=== PATIENT | male | born 1965 | race Caucasian/White ===

== ENCOUNTER 2020-01-07 07:55 | Day surgery (SDC) | payer OTHER ==
[~2020-01-07] VITALS: Ht 177.8 cm; Wt 106.6 kg
[~2020-01-07 07:55] MED LIST: ACAI500 MG PO; CENTRUM SILVER1 EAC3 PO; CLARITIN10 M2 PO; FLAX OIL1000 MG PO; ROYAL JELLY200 MG PO; SELENIUM50 MCG PO; ZINC50 M1 PO
[2020-01-07] MEDS ORDERED: VITAMIN D-40010 MCG PO (08:07)
[2020-01-07] MEDS ORDERED: CO Q-1010 MG PO (08:07)
--- NOTE | 2020-01-07 09:15 | NUR ---
01/07/20 0915 Avis Fontana 0904- PT ARRIVES TO PACU EASILY AROUSABLE TO VERBAL STIMULI. RESP EVEN AND UNLABORED. OXYGEN SAT MID TO HIGH 90'S ON 3L VIA NC. PT REPORTS NO PAIN OR NAUSEA. 0908- PT FALLS ASLEEP WHEN NOT BEING TALKED TO. PT IS SNORING AND OXYGEN SAT DROPPING TO THE HIGH 80'S ON 3L NC. PT IS AROUSABLE AND ENCOURAGED TO TAKE DEEP BREATHS. PT IS ABLE TO DO THIS AND OXYGEN SAT INCREASED TO HIGH 90'S ON THE 3L VIA NC. 0912- DR. COOK AT THE BEDSIDE TO TALK WITH THE PT.
--- NOTE | 2020-01-08 08:25 | OR ---
[facility] [address] [place], [place] [address] Signed DATE OF OPERATION: 01/07/2020 SURGEON: Ran Cook MD PREOPERATIVE DIAGNOSES: 1. Personal history of colonic polyps, age 49. 2. Father with colon cancer age 55. 3. Brother with colon polyps in his 50s. 4. Moderate internal and external hemorrhoids. POSTOPERATIVE DIAGNOSES: 1. 4-5 mm polyps at cecum (x2), distal right colon, proximal transverse colon, distal transverse colon, 70 cm and 25 cm (x3). 2. Moderate internal and external hemorrhoids. PROCEDURE: Colonoscopy with hot biopsy. ESTIMATED BLOOD LOSS: None. INDICATIONS: Mindy is a 54-year-old gentleman, who returns now for followup colonoscopy. He and his brother both have had colonic polyps removed. In addition, his father had colon cancer at age 55. Mindy is also known to have internal and external hemorrhoids. In the office, I reviewed all this with Mindy in detail. He tells me he really has no lower GI complaints currently. I gave him a pamphlet on colonoscopy and he understands the nature of that test quite well. He understands there is risk including, but not limited to gas bloating, crampy abdominal pain, bleeding, perforation requiring surgery, and missed diagnosis. He had expressed understanding and wished to proceed. He has done well with Versed and fentanyl in the past. DESCRIPTION OF PROCEDURE: Mindy was taken into our endoscopy suite and placed in the left lateral decubitus position. He was given IV sedation with 10 mg Versed and 200 mcg of fentanyl. He told us he likes a couple of beers or a glass of wine each night after work. A digital rectal exam was performed and this did reveal a couple of moderate external hemorrhoids. He has good sphincter tone. Prostate mildly indurated. The adult colonoscope was introduced and advanced all around into the cecum under direct visualization of camera. It took a little extra sedation in order to get into the cecum itself. His prep was Electronically Signed By: RAN COOK MD 01/08/20 0825 PATIENT NAME: MINDY FAN OPERATIVE REPORT DATE OF : 63 REPORT #: [id number] PHYSICIAN: RAN COOK MD PCP: DIXIE YUEN MD REPORT IS CONFIDENTIAL AND NOT TO BE RELEASED WITHOUT AUTHORIZATION [facility] [address] [place] [id number] Signed quite excellent. We could easily see the appendiceal orifice and the opening to the terminal ileum. The scope was then slowly withdrawn. The above-mentioned polyps were easily removed with the help of hot biopsy forceps. There was no diverticulosis. Once in the rectum, the scope had been retroflexed. He does have moderate internal hemorrhoid columns. After this, the gas was suctioned out. The colonoscope removed. Mindy tolerated the procedure quite well. RECOMMENDATIONS: I will see Mindy back in my office in 7 to 14 days to review his results. He will stay on the 5-year rotation given his personal family history. Ran Coko MD ALB/MODL /[id number] cc: MD Dixie Lopez MD Copies: RAN COOK MD ~ Electronically Signed By: RAN COOK MD 01/08/20 0825 PATIENT NAME: MINDY FAN OPERATIVE REPORT DATE OF : 63 REPORT #: [id number] PHYSICIAN: RAN COOK MD PCP: DIXIE YUEN MD REPORT IS CONFIDENTIAL AND NOT TO BE RELEASED WITHOUT AUTHORIZATION
--- NOTE | 2020-01-08 16:52 | PATH ---
[facility] [address] [place] [address] Signed SPECIMEN(S): A COLON POLYP AT 25 CM SPECIMEN(S): B COLON POLYP AT 70 CM SPECIMEN(S): C DISTAL TRANSVERSE POLYP SPECIMEN(S): D DISTAL ASCENDING POLYP SPECIMEN(S): E CECAL POLYP SPECIMEN(S): F PROXIMAL TRANSVERSE POLYP SPECIMEN SOURCE: A. COLON POLYP AT 25 CM B. COLON POLYP AT 70 CM C. DISTAL TRANSVERSE POLYP D. DISTAL ASCENDING POLYP E. CECAL POLYP F. PROXIMAL TRANSVERSE POLYP CLINICAL HISTORY: Colonoscopy. Family history of colon CA, personal history of colon polyps. Post: External/internal hemorrhoids, colon polyps. MICROSCOPIC DESCRIPTION: Histologic sections of all submitted blocks are examined by light microscopy. These findings, together with the gross examination, support the pathologic diagnosis. FINAL PATHOLOGIC DIAGNOSIS: A. Colon, 25 cm, polypectomy: - Hyperplastic polyp. B. Colon, 70 cm, polypectomy: - Tubular adenoma. C. Colon, distal transverse, polypectomy: - Scant superficial fragments of benign colonic mucosa with no significant pathologic changes. D. Colon, distal ascending, polypectomy: - Tubular adenoma. E. Cecum, polypectomy: - Tubular adenoma. F. Colon, proximal transverse, polypectomy: - Tubular adenoma. BRP:[facility]:C2NR GROSS DESCRIPTION: Six specimens are received in six containers, labeled "DO" PATIENT NAME: MINDY FAN PATHOLOGY DATE OF : 63 REPORT #: [id number] PHYSICIAN: ANN MANNING PCP: JUN YUEN MD REPORT IS CONFIDENTIAL AND NOT TO BE RELEASED WITHOUT AUTHORIZATION [facility] [address] [place], [place] [address] Signed A. The specimen, labeled "DO, 1," and designated on the requisition "colon polyp at 25 cm," is received in formalin and consists of three lynn soft tissue polypoid fragments that measure 0.3 cm in greatest dimension. The specimen is entirely submitted in cassette (A1). B. The specimen, labeled "DO, 2," and designated on the requisition "colon polyp at 70 cm," is received in formalin and consists of one lynn soft tissue fragment that measures 0.3 cm in greatest dimension. The specimen is entirely submitted in cassette (B1). C. The specimen, labeled "DO, 3," and designated on the requisition "distal transverse polyp," is received in formalin and consists of one minute lynn soft tissue fragment that measures 0.2 cm in greatest dimension. The specimen is filtered, inked with eosin, and entirely submitted in cassette (C1). D. The specimen, labeled "DO, 4," and designated on the requisition "distal ascending polyp," is received in formalin and consists of three lynn soft tissue fragments that measure 0.3 cm in greatest dimension. The specimen is entirely submitted in cassette (D1). E. The specimen, labeled "DO, 5," and designated on the requisition "cecum polyp," is received in formalin and consists of three lynn soft tissue polypoid fragments that measure 0.4 cm in greatest dimension. The specimen is friable and entirely submitted in cassette (E1). F. The specimen, labeled "DO, 6," and designated on the requisition "proximal transverse polyp," is received in formalin and consists of two lynn soft tissue polypoid fragments that measure 0.3 cm in greatest dimension. The specimen is entirely submitted in cassette (F1). AT (under the direct supervision of a pathologist) The Gross Description was prepared using a voice recognition system. The report was reviewed for accuracy; however, sound-alike word errors, addition and/or deletions may occur. If there is any question about this report, please contact Client Services. PERFORMING LABORATORY: The technical component was performed by [employer], [address] [place] [id number] (Heel Packer: Meka Lucero MD; CLIA# [id number]). Professional interpretation was performed by [employer], [facility], [address] [address] (CLIA# [id number]). Diagnostician: Olivier Vaughan MD Pathologist PATIENT NAME: MINDY FAN PATHOLOGY DATE OF : 63 REPORT #: [id number] PHYSICIAN: ANN MANNING PCP: JUN YUEN MD REPORT IS CONFIDENTIAL AND NOT TO BE RELEASED WITHOUT AUTHORIZATION [facility] [address] [place] [id number] Signed Electronically Signed 01/08/2020 Copies: ~ PATIENT NAME: MINDY FAN PATHOLOGY DATE OF : 63 REPORT #: [id number] PHYSICIAN: ANN PATHOLOGY PCP: JUN YUEN MD REPORT IS CONFIDENTIAL AND NOT TO BE RELEASED WITHOUT AUTHORIZATION
== END 2020-01-07 09:50 | disposition home or self-care (01) ==
LOC: DS 07:55 → OPS 07:55 → DS 08:04 → OPS 09:00 → DS 09:45 → OPS 09:50
PROVIDERS: ATTEND Colon & Rectal Surgery
PROC: 0DBE8ZZ Excision of Large Intestine, Via Natural or Artificial Opening Endoscopic (ICD-10-PCS; 2020-01-07)
PROC: 0DBL8ZZ Excision of Transverse Colon, Via Natural or Artificial Opening Endoscopic (ICD-10-PCS; 2020-01-07)
PROC: 0DBH8ZZ Excision of Cecum, Via Natural or Artificial Opening Endoscopic (ICD-10-PCS; 2020-01-07)
PROC: 0DBK8ZZ Excision of Ascending Colon, Via Natural or Artificial Opening Endoscopic (ICD-10-PCS; principal; 2020-01-07 09:00)
DX: Z12.11 Encounter for screening for malignant neoplasm of colon (principal); D12.2 Benign neoplasm of ascending colon; D12.0 Benign neoplasm of cecum; D12.3 Benign neoplasm of transverse colon; K64.4 Residual hemorrhoidal skin tags; K64.8 Other hemorrhoids; E78.5 Hyperlipidemia, unspecified; Z83.71 Family history of colonic polyps; Z80.0 Family history of malignant neoplasm of digestive organs; Z86.010 Personal history of colon polyps; Z79.899 Other long term (current) drug therapy; Z88.0 Allergy status to penicillin; Z91.030 Bee allergy status
CPT/HCPCS: 99153; G0500; J2250; J3010

== ENCOUNTER 2021-04-11 16:43 | Emergency (ER) | payer OTHER ==
[~2021-04-11] VITALS: Ht 177.8 cm; Wt 99.8 kg
[~2021-04-11 16:43] MED LIST changes: +CO Q-1010 MG PO; +VITAMIN D-40010 MCG PO
[2021-04-11] MEDS ORDERED: MOBIC15 MG PO (21:20)
== END 2021-04-11 21:49 | disposition home or self-care (01) ==
LOC: ED 16:43
DX: S83.92XA Sprain of unspecified site of left knee, initial encounter (principal); X58.XXXA Exposure to other specified factors, initial encounter; Z88.0 Allergy status to penicillin; Z91.030 Bee allergy status
CPT/HCPCS: 73560; 73700; 99284-25

== ENCOUNTER 2021-11-17 06:15 | Day surgery (SDC) | payer OTHER ==
[~2021-11-17] VITALS: Ht 177.8 cm; Wt 102.3 kg
[~2021-11-17 06:15] MED LIST changes: +MOBIC15 MG PO
[2021-11-17] MEDS ORDERED: ALEVE220 M1 PO (06:57)
[2021-11-17] MEDS ORDERED: DICLOFENAC SODI75 MG PO (08:09)
[2021-11-17] MEDS ORDERED: HYDROCODON-ACE1 EA10 PO (08:10)
--- NOTE | 2021-11-17 08:14 | NUR ---
11/17/21 0814 Zeinab,Michelle 0806 PT ARRIVED TO PACU WITH ORAL AIRWAY IN PLACE, O2 6L VIA MASK. RESP EVEN AND UNLABORED. VSS. PT NONAROUSABLE.
--- NOTE | 2021-11-17 09:27 | NUR ---
0864 PATIENT BACK TO DAY SURGERY FROM PACU TO ROOM 6. REPORT RECIEVED FROM WESLEY MULLEN. PATIENT ALERT AND ORIENTED. BREATHING EQUAL AND UNLABORED. OXYGEN SAUTRATIONS ABOVE 90% ON ROOM AIR. PATIENT EXTREMITY ELEVATED. ICE APPLIED. SCD'S ON. IVF INFUSING. PATIENT GIVEN WATER AND PUDDING. CALL LIGHT WITHIN REACH NO FUTHER NEEDS. NO QUESTIONS AT THIS TIME.
--- NOTE | 2021-11-17 09:29 | NUR ---
2264 PATIENT COMPLAINING OF PAIN AT SURGICAL SITE. PRN PAIN MEDICINE GIVEN SEE EMAR. PATIENT DENIES ANY NAUSEA. IVF INFUSING. SCD'S ON. ICE APPLIED AND EXTERMITY ELEVATED. CALL LIGHT WITHIN REACH NO FUTHER NEEDS NO QUESTIONS AT THIS TIME.
--- NOTE | 2021-11-17 10:00 | NUR ---
0939 PATIENT IS ALERT AND ORIENTED. PATIENT BREATHING EQUAL AND UNLABORED. OXYGEN SATURATIONS MAINTAIN ABOVE 95%. PATIENT STATES PAIN IS IMPROVING. PATIENT ABLE TO TOLERATE AMBULATION TO THE RESTROOM. PATIENT VOIDED. PATIENT BACK TO ROOM. 0950 PATIENT HAS MET DISCHARGE CRITERIA. PATIENT ABLE TO DRESS SELF AND TOLERATE IT WELL. PATIENT GIVEN DISCHARGE INSTRUCTIONS AND UNDERSTOOD. PRABHU WAS WHEELED OUT OF FACILTY TO PRIVATE AUTO WITH . NO QUESTIONS AT THIS TIME.
--- NOTE | 2021-11-20 06:59 | OR ---
[facility] [address] [place], [place] [address] Signed DATE OF OPERATION: 11/17/2021 SURGEON: Aly Rod MD PREOPERATIVE DIAGNOSIS: Medial meniscus tear, left knee. POSTOPERATIVE DIAGNOSIS: Medial meniscus tear, left knee. PROCEDURE PERFORMED: Left knee arthroscopy with partial medial meniscectomy. CONTRACT SPECIALIST: None. ANESTHESIA: General. BLOOD LOSS: Minimal. BRIEF HISTORY: Mindy is a 56-year-old gentleman with pain and locking in his knee. MRI was consistent with a large posteromedial meniscus tear. Risks, benefits, and alternatives of operative treatment were discussed with him and he elected to proceed. DESCRIPTION OF PROCEDURE: Once consent was obtained, he was taken to the operating room. After adequate anesthesia, he was placed on the operating room table. The right leg was flexed, abducted and externally rotated on a well-padded leg ron. The left was placed in well-padded proximal thigh leg ron with no tourniquet. The leg was then prepped and draped in a standard sterile fashion. The port sites were injected with 0.25% Marcaine with epinephrine under the regular prep. The standard inferolateral and superolateral portals were made and the scope was introduced into the knee. ARTHROSCOPIC FINDINGS: There was minimal chondromalacia of the patella and trochlea. Medial and lateral gutters were clear. ACL and PCL were intact. Lateral compartment was intact. Medial compartment showed a complex tear extending from the posterior horn all the way to the Electronically Signed By: ALY ROD MD 11/20/21 0659 PATIENT NAME: MINDY FAN OPERATIVE REPORT DATE OF : 63 REPORT #: [id number] PHYSICIAN: ALY ROD MD PCP: JUN YUEN MD REPORT IS CONFIDENTIAL AND NOT TO BE RELEASED WITHOUT AUTHORIZATION [facility] [address] [place], [place] [address] Signed midbody or just a little anterior. Had both horizontal and radial components and a small flap inferiorly folded. 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 No significant flaps were noted. DESCRIPTION OF OPERATION: Standard inferomedial portal was established after localization using a spinal needle. The straight and curved biters were then used to trim the meniscus back to a stable rim. This was then smoothed and feathered out using the shaver and all debris was evacuated. The scope was then withdrawn. Portals were closed with 3-0 nylon and the wound was dressed with Adaptic, ABD and Ferdinand wrap. He tolerated the procedure well. All sponge, needle, and instrument counts were correct. Aly Rod MD BA/ELIER /[id number] Copies: ~ Electronically Signed By: ALY ROD MD 11/20/21 0659 PATIENT NAME: MINDY FAN OPERATIVE REPORT DATE OF : 63 REPORT #: [id number] PHYSICIAN: ALY ROD MD PCP: JUN YUEN MD REPORT IS CONFIDENTIAL AND NOT TO BE RELEASED WITHOUT AUTHORIZATION
== END 2021-11-17 09:50 | disposition home or self-care (01) ==
LOC: DS 06:15
PROVIDERS: ATTEND Specialist
PROC: 0SBD4ZZ Excision of Left Knee Joint, Percutaneous Endoscopic Approach (ICD-10-PCS; principal; 2021-11-17 08:45)
DX: S83.232A Complex tear of medial meniscus, current injury, left knee, initial encounter (principal); M22.42 Chondromalacia patellae, left knee; X58.XXXA Exposure to other specified factors, initial encounter; Z88.0 Allergy status to penicillin
CPT/HCPCS: J0690; J1885; J2001; J2250; J2405; J2704; J7121